=== PATIENT | male | born 1990 | race American Indian/Alaskan Native ===

== ENCOUNTER 2018-10-25 15:24 | Emergency (ER) | payer SELFPAY ==
[2018-10-25] MEDS ORDERED: TORADOL IM ONE (15:52)
[2018-10-25] MEDS ORDERED: DECADRON IM ONE (15:52)
--- NOTE | 2018-10-25 15:54 | Emergency Department Report ---
ED Back Pain/Injury HPI - General Chief Complaint: Extremity Injury, Lower Stated Complaint: LT LEG PAIN Time Seen by Provider: 10/25/18 15:37 Source: patient Limitations: No Limitations - History of Present Illness Initial Comments: Patient is a 28-year-old male comes to the ER today complaining of left groin pain. On exam he is pointing to soft tissue between the groin and the upper extremity quadriceps Area. The pain he said he woke up with. They got worse yesterday when he started a new job and had to lift things. Patient is dramatically limping on his right leg and states that he looked this up and he needs to be off work for 6 weeks. He denies testicular pain. He has no testicular masses on exam. No discharge. No dysuria. He is ambulatory. No CVA tenderness. There is no hernia. -: Sudden, days(s) Similar Symptoms Previously: No Place: work Radiation: none Severity: moderate Quality: aching Consistency: constant Improves With: immobilization Worsens With: movement Associated Symptoms: denies other symptoms - Related Data Previous Rx's Medication Instructions Recorded Last Taken Type Cyclobenzaprine [Flexeril] 10 mg PO TID PRN #10 tablet 10/25/18 Unknown Rx Allergies Allergy/AdvReac Type Severity Reaction Status Date / Time No Known Allergies Allergy Unverified 10/25/18 15:26 ED Review of Systems ROS: Stated complaint: LT LEG PAIN Other details as noted in HPI Comment: All other systems reviewed and negative ED Past Medical Hx - Past Medical History Medical history: no medical history ED Back Pain Physical Exam - Exam General: Vital signs noted. No distress. Alert and acting appropriately. WDWN patient in NAD VS per RN flow sheet Alert and oriented to person, place and time. S1-S2. No S3 or S4. No systolic or diastolic murmur. No JVD. No pitting edema. Lungs clear to auscultation bilaterally anteriorly and posteriorly. Abdomen soft nontender bowel sounds X4 NO LUMBAR TENDERNESS. NO CVA TENDERNESS. NEG STRAIGHT LEG RAISE. DP B PLUS 2. NO EDEMA. NO SWELLING. NO HERNIA. NO TESTICULAR SWELLING. NO PENILE DC OR LESIONS. Mood and affect appropriate. ED Medical Decision Making - Medical Decision Making MEDICATED FOR PAIN VS NORMAL. RN ASKED TO DOCUMENT. EDUCATED ON GROIN PULLS/MUSCLE PULLS WILL DC HOME WITH DC PLAN OF CARE. FOLLOW UP PCP IF PERSISTS. Critical care attestation.: If time is entered above; I have spent that time in minutes in the direct care of this critically ill patient, excluding procedure time. ED Disposition Clinical Impression: Muscle strain Disposition: TO HOME OR SELFCARE Is pt being admited?: No Does the pt Need Aspirin: No Condition: Stable Instructions: Muscle Strain (ED) Additional Instructions: DIET TOLERATED MEDS ORDERED TODAY IN ER FOLLOW INSTRUCTIONS ON THE BOTTLE FOLLOW UP PCP WITHIN 48 HOURS TO ENSURE YOU ARE GETTING BETTER ACTIVITY TOLERATED MOTRIN OR TYLENOL FOR PAIN OR FEVER RETURN TO THE ER FOR WORSENING SYMPTOMS NOT RELIEVED BY YOUR MEDICATIONS. Prescriptions: Cyclobenzaprine [Flexeril] 10 mg PO TID PRN #10 tablet PRN Reason: Muscle Spasm Referrals: MELANI MIMS MD [Staff Physician] - 3-5 Days Forms: Work/School Release Form(ED) Time of Disposition: 15:53
== END 2018-10-25 16:47 | disposition home or self-care (01) ==
LOC: ED 15:24
DX: S76.912A Strain of unspecified muscles, fascia and tendons at thigh level, left thigh, initial encounter (principal); X58.XXXA Exposure to other specified factors, initial encounter; Y93.89 Activity, other specified; Y92.89 Other specified places as the place of occurrence of the external cause; Y99.8 Other external cause status
CPT/HCPCS: 96372; 99281; J1100; J1885

== ENCOUNTER 2018-11-15 07:28 | Emergency (ER) | payer SELFPAY ==
--- NOTE | 2018-11-15 09:21 | Emergency Department Report ---
Chief Complaint: Extremity Problem,Nontraumatic Stated Complaint: LT LEG PAIN Time Seen by Provider: 11/15/18 09:07 - HPI History of Present Illness: Patient is a 28-year-old -Martiniquais male who states he has continued to have left inguinal pain with movement. Patient states that he was here last month and got a pain shot which did help for a few days but he continued to have pain. Patient states that with his job he does a lot of walking and he thinks he may have pulled something. Patient states is a aching throbbing pain in the left groin worse with walking and movement better with rest. Patient states that now his knees are starting to hurt as well. There is no trauma no swelling. Patient denies any bowel or bladder dysfunction. Patient states is no dysuria or penile discharge. There is no testicular swelling present. - Exam Physical Exam: Patient alert and oriented 3 in no acute distress. His abdomen is soft and nontender. Muscular skeletal exam shows that the patient has full range of motion to the left hip although he does walk with a limp. There is no swelling in the inguinal canal consistent with a hernia MSE screening note: Focused history and physical exam performed. Due to findings the following was ordered: ED Medical Decision Making - Medical Decision Making Patient is not medical emergency at this time is chronic issue. Patient to continue with ibuprofen and we did discuss proper dosing. Patient he is ice therapy. Patient referred to orthopedics who can better properly diagnosed patient. ED Disposition for MSE Clinical Impression: Groin strain Qualifiers: Encounter type: initial encounter Laterality: left Qualified Code(s): S76.212A - Strain of adductor muscle, fascia and tendon of left thigh, initial encounter Disposition: MED SCREENING EXAM-LEFT Is pt being admited?: No Does the pt Need Aspirin: No Condition: Stable Instructions: Groin Strain (ED) Additional Instructions: He can take up to 4 regular ibuprofen [id number] pills every 6 hours. Please use ice therapy on the left groin 3 times a day for up to 20 minutes at a time. Referrals: KENNETH ACUÑA MD [Primary Care Provider] - 3-5 Days GLENROY FRIAS MD [Staff Physician] - 3-5 Days Time of Disposition: :20
== END 2018-11-15 09:28 | disposition left against medical advice (07) ==
LOC: ED 07:28
DX: S76.219A Strain of adductor muscle, fascia and tendon of unspecified thigh, initial encounter (principal); X58.XXXA Exposure to other specified factors, initial encounter; Y93.89 Activity, other specified; Y92.89 Other specified places as the place of occurrence of the external cause; Y99.8 Other external cause status
CPT/HCPCS: 99281